=== PATIENT | female | born 1935 | race Caucasian/White ===

== ENCOUNTER 2018-04-19 14:26 | Outpatient (CLI) | payer MEDICARE, OTHER ==
--- NOTE | 2018-04-19 15:28 | RAD ---
RIGHT FOOT THREE VIEWS: INDICATIONS: Right foot pain. 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 There is moderate great toe MCP o steoarthrosis. There is scattered IP osteoarthrosis. There is advanced degenerative change at the 2 nd and 3rd tarsometatarsal articulation, which is nonspecific. Lisfranc alignment is within normal l imits. No active periarticular erosive change is grossly evident. IMPRESSION: 1. No definite acute fracture or subluxation demonstrated. 2. Moderate bunion deformity of the great toe metatarsal with moderate great toe metatarsophalangeal osteoarthrosis. 3. Advanced osteoarthritic change at the 2nd and 3rd tarsometatarsal articulation may reflect sequel a of prior trauma. POS: MEHUL
== END 2018-04-19 14:27 | disposition home or self-care (01) ==
LOC: BICRAD 14:26
PROVIDERS: ATTEND Podiatrist
DX: M79.671 Pain in right foot (principal); M21.6X2 Other acquired deformities of left foot; R26.9 Unspecified abnormalities of gait and mobility; M19.071 Primary osteoarthritis, right ankle and foot; M20.5X1 Other deformities of toe(s) (acquired), right foot